=== PATIENT | male | born 1965 | race African-American/Black ===

== ENCOUNTER 2016-04-13 08:57 | Day surgery (SDC) | payer OTHER ==
[~2016-04-13 08:57] MED LIST: LIDOCAINE HCL 1%, 10 MG/ML (20ML VIAL) IJ ONE
[2016-04-13] MEDS ORDERED: POVIDONE-IODINE OINTMENT 10% - 28.4 GM TUBE ONE (09:13)
[2016-04-13] MEDS ORDERED: HEPARIN NA (PORCINE) 5,000 UNITS/ML 1ML VIAL ONE ×2 (09:13→10:29)
[2016-04-13] MEDS ORDERED: LIDOCAINE HCL 1%, 10 MG/ML (20ML VIAL) ONE (09:13)
[2016-04-13] MEDS ORDERED: PROPOFOL 20 ML ONE (10:29)
[2016-04-13] MEDS ORDERED: MIDAZOLAM HCL 2 MG/2 ML SINGLE DOSE VIAL ONE (10:29)
[2016-04-13] MEDS ORDERED: ceFAZolin SODIUM 1 GM VIAL IVPB ONE (11:15)
[2016-04-13] MEDS ORDERED: LIDOCAINE HCL 1%, 10 MG/ML (20ML VIAL) IJ ONE ×2 (11:17)
[2016-04-13] MEDS ORDERED: IOHEXOL 300 MG/ML INFUS..BTL IV ONE (11:38)
[2016-04-13] MEDS ORDERED: ONDANSETRON 4 MG/2 ML VIAL IVPUSH PRN (11:41)
[2016-04-13] MEDS ORDERED: oxyCODONE HCL 5 MG TABLET PO PRN (11:41)
--- NOTE | 2016-04-13 11:41 | OP ---
Operative Note - Note: Operative Date: 04/13/16 Pre-Operative Diagnosis: stenosis left avf Operation: venogram, venoplasty left avf Post-Operative Diagnosis: Same as Pre-op Surgeon: Felipe Shelley Anesthesia: Fractional Estimated Blood Loss (mls): 10 Operative Report Dictated: Yes
[2016-04-13] MEDS ORDERED: SODIUM CHLORIDE 1,000 ML IV SCH (11:45)
--- NOTE | 2016-04-13 11:46 | HP ---
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: Yes: CVA Cardiovascular: Yes: CAD, HTN, Hyperlipdemia, Other (chronic type B aortic dissection and 4-4.2 cm descending thoracic aortic aneurysm) Renal/: Yes: Renal Inusuff, Hemodialysis Heme/Onc: Yes: Anemia, B12 Deficiency, Thrombocytopenia - Past Surgical History Past Surgical History: Yes: None, AV Fistula/Graft - Smoking History Smoking history: Never smoked Have you smoked in the past 12 months: No Aproximately how many cigarettes per day: 0 - Alcohol/Substance Use Hx Alcohol Use: No History of Substance Use: reports: Cocaine - Social History ADL: Family Assistance History of Recent Travel: No Home Medications - Allergies Allergies/Adverse Reactions: Allergies Allergy/AdvReac Type Severity Reaction Status Date / Time No Known Drug Allergies Allergy Verified 04/13/16 09:56 - Home Medications Home Medications: Ambulatory Orders Losartan Potassium 50 mg PO DAILY 05/12/15 Aspirin [ASA -] 81 mg PO BID #30 tab.chew 11/23/15 Labetalol HCl [Normodyne -] 100 mg PO Q8H #90 tablet 11/23/15 Pravastatin Sodium 40 tab PO HS #60 tablet 11/23/15 Family Disease History - Family Disease History Family Disease History: Heart Disease: Mother (CABG in 50s) Physical Examination Vital Signs: Vital Signs Temperature 98.4 F 04/13/16 09:25 Pulse Rate 77 04/13/16 09:25 Respiratory Rate 20 04/13/16 09:25 Blood Pressure 105/62 04/13/16 09:25 O2 Sat by Pulse Oximetry (%) 97 04/13/16 09:28 Constitutional: Yes: Well Nourished Eyes: Yes: WNL HENT: Yes: WNL Neck: Yes: WNL Cardiovascular: Yes: WNL Respiratory: Yes: WNL Gastrointestinal: Yes: WNL Labs: CBC, BMP 04/13/16 09:06 Assessment/Plan Stenosis left avf 1. for venogram today
[2016-04-13 12:23] VITALS: TEMP 97.7
[2016-04-13 13:54] VITALS: BP 123/70; PULSE 70
--- NOTE | 2016-04-14 10:55 | OP ---
DATE OF OPERATION: 04/13/2016 PREOPERATIVE DIAGNOSIS: Stenosis left atrioventricular fistula. POSTOPERATIVE DIAGNOSIS: Stenosis left atrioventricular fistula. PROCEDURE: Venogram, venoplasty, left AV fistula. SURGEON: Felipe Horton DO ANESTHESIA: Fractional. ESTIMATED BLOOD LOSS: 10 mL. INDICATIONS: The patient is a 50-year-old male who has stenosis and left AV fistula, which was found on preoperative ultrasound for surveillance showing that he has an 80%-90% stenosis in the body of his left AV fistula. It was decided that he would need a venogram. The patient came in through ambulatory surgery and was consented for the procedure understanding all risks, benefits, and alternatives. He was then brought to the operating room. DESCRIPTION OF PROCEDURE: Once in the operating room, he was laid on the operating table in supine manner. The area of the left arm was prepped and draped in a sterile surgical manner. We then went ahead and injected 5 mL of lidocaine 1% at the proximal AV fistula. We took our micropuncture needle and punctured the left AV fistula. Micropuncture sheath was inserted. The 0.035 floppy guidewire was inserted, and a traditional short 6-Romansh sheath was inserted. We then went ahead and shot a venogram by a hand injection showing that the body of the fistula has a 80%-90% stenosis. At this point, a 0.035 floppy guidewire was used, and we were able to cross our lesion. We then went ahead and used an 8 x 6 and then a 9 x 6 venoplasty [place] balloon and we were able to perform venoplasty of the area. Complete venogram showed that the fistula was now completely patent. There was no recoil, and there was a good thrill. At this point, we went ahead and used a 4-0 Biosyn stitch, and a [id number] stitch was placed around our sheath, and the sheath was pulled. The area was wet and dried. Dermabond was placed. The patient tolerated the procedure well with no complication. The patient was transferred back in stable condition. FELIPE HORTON DO GRAPPLE SKIDDER OPERATOR/[id number]
== END 2016-04-13 14:00 | disposition home or self-care (01) ==
LOC: JASU-SURG 08:57
PROVIDERS: ATTEND Surgery Vascular Surgery
PROC: B50WYZZ Plain Radiography of Dialysis Shunt/Fistula using Other Contrast (ICD-10-PCS; principal; 2016-04-13 10:30)
DX: I77.0 Arteriovenous fistula, acquired (principal); T82.858A Stenosis of other vascular prosthetic devices, implants and grafts, initial encounter; Y93.9 Activity, unspecified; Y92.9 Unspecified place or not applicable
CPT/HCPCS: 36415; 76000-TC; 84132; 94760; J1644

== ENCOUNTER 2016-09-20 13:00 | Observation (INO) | payer OTHER ==
--- NOTE | 2016-09-20 13:26 | PDOC ---
History of Present Illness - General Chief Complaint: Pain Stated Complaint: ABDOMINAL PAIN Time Seen by Provider: 09/20/16 13:23 History Source: Patient, Parent(s) - History of Present Illness Initial Comments: 09/20/16 16:15 50yo with ESRD on HD 3x a week (missed today), HTN, CAD, cardiomyopathy, HLD and chronic Type B aortic dissection present for pain on palpation 8/10 on left flank midaxillary line since this morning. Loss of appetite. No nausea, vomiting, constipation, diarrhea fever. 09/20/16 18:02 Past History - Past Medical History Allergies/Adverse Reactions: Allergies Allergy/AdvReac Type Severity Reaction Status Date / Time No Known Drug Allergies Allergy Verified 09/20/16 13:04 Home Medications: Ambulatory Orders Losartan Potassium 50 mg PO DAILY 05/12/15 Aspirin [ASA -] 81 mg PO BID #30 tab.chew 11/23/15 Labetalol HCl [Normodyne -] 100 mg PO Q8H #90 tablet 11/23/15 Pravastatin Sodium 40 tab PO HS #60 tablet 11/23/15 Amlodipine Besylate 5 mg PO DAILY 07/22/16 Anemia: No Asthma: No Cancer: No Cardiac Disorders: No CVA: Yes (MULTIPLE RESIDUAL R SIDED WEAKNESS AND EXPRESSIVE APHASIA) COPD: No CHF: No Dementia: No Diabetes: No Dialysis: Yes () GI Disorders: No Disorders: No HTN: Yes Hypercholesterolemia: Yes Liver Disease: No Seizures: No Thyroid Disease: No - Surgical History Abdominal Surgery: No Appendectomy: No Cardiac Surgery: No Cholecystectomy: No Lung Surgery: No Neurologic Surgery: No Orthopedic Surgery: No - Family Disease History Family Disease History: Heart Disease: Mother - Immunization History Immunization Up to Date: Yes - Psycho/Social/Smoking Cessation Hx Anxiety: No Suicidal Ideation: No Smoking Status: No Smoking History: Never smoked Have you smoked in the past 12 months: No Number of Cigarettes Smoked Daily: 0 Hx Alcohol Use: No Drug/Substance Use Hx: No Substance Use Type: None Hx Substance Use Treatment: No Review of Systems - Review of Systems Constitutional: No: Symptoms Reported HEENTM: No: Symptoms Reported Respiratory: No: Symptoms reported Cardiac (ROS): No: Symptoms Reported ABD/GI: Yes: See HPI : No: Symptoms Reported Musculoskeletal: No: Symptoms Reported Integumentary: No: Symptoms Reported Neurological: No: Symptoms reported *Physical Exam - Physical Exam General Appearance: Yes: Nourished, Disheveled HEENT: positive: EOMI Neck: negative: Tender Respiratory/Chest: positive: Chest Tender (on palpation of left midaxillary line ), Normal Breath Sounds Cardiovascular: positive: Regular Rhythm, Regular Rate ED Treatment Course - LABORATORY CBC & Chemistry Diagram: 09/20/16 15:12 09/20/16 15:12 Medical Decision Making - Medical Decision Making 09/20/16 18:04 50yo with ESRD on HD 3x a week (missed today), HTN, CAD, cardiomyopathy, HLD and chronic Type B aortic dissection present for pain on palpation 8/10 on left flank midaxillary line since this morning EKG, CXR unchanged from previous. MIssed HD today. Talked to Dr. Brown who accepted to hemodialyze patient tomorrow. Patient to be admitted in obs until then. 09/20/16 18:08 *DC/Admit/Observation/Transfer Diagnosis at time of Disposition: ESRD (end stage renal disease) on dialysis, Thoracic aortic dissection - Discharge Dispostion Admit: Yes - Referrals Referrals: Prudencio Severino MD [Primary Care Provider] - Kevin Brown MD [Staff Physician] - Dion Delatorre MD [Staff Physician] -
--- NOTE | 2016-09-20 13:29 | PDOC ---
Attending Attestation - Resident Resident Name: Zachary Rodriguez - ED Attending Attestation I have performed the following: I have examined & evaluated the patient, The case was reviewed & discussed with the resident, I agree w/resident's findings & plan, Exceptions are as noted - HPI HPI: 50 yo M history ESRD on HD (missed his session today), HTN, CAD, cardiomyopathy , HL, aortic aneurysm presents with L chest pain, localizes to the lower ribs on the L side of chest. Not associated with SOB, N/V, diaphoresis. Still having pain at present. Denies trauma. He missed his dialysis today due to the pain. - Physicial Exam PE: GENERAL: Awake, alert, and fully oriented, in no acute distress HEAD: No signs of trauma EYES: PERRLA, EOMI, sclera anicteric, conjunctiva clear ENT: Auricles normal inspection, hearing grossly normal, nares patent, oropharynx clear without exudates. Moist mucosa NECK: Normal ROM, supple, no lymphadenopathy, JVD, or masses LUNGS: Breath sounds equal, clear to auscultation bilaterally. No wheezes, and no crackles HEART: Regular rate and rhythm, normal S1 and S2, no murmurs, rubs or gallops ABDOMEN: Soft, nontender, normoactive bowel sounds. No guarding, no rebound. No masses EXTREMITIES: Normal range of motion, no edema. No clubbing or cyanosis. No cords, erythema, or tenderness NEUROLOGICAL: Cranial nerves II through XII grossly intact. Normal speech, normal gait SKIN: Warm, Dry, normal turgor, no rashes or lesions noted. - Medical Decision Making Pt with L chest pain (he indicates the lower rib margin on the L side along the mid-axillary line), would be exceedingly atypical for complication of the aneurysm. However, he is high risk for ACS. Will admit for serial enzymes. Will contact Dr. Brown for dialysis.
[2016-09-20 13:38] VITALS: BMI 26.6
[2016-09-20 15:28] LABS: BASOPHIL 0.4 % (0-2.0); EOSINOPHIL 1.3 % (0-4.5); MCHC 33.5 g/dl (32.0-35.9); MEAN CELL VOLUME 98.4 fl (80-96); MEAN PLT VOLUME 9.1 fl (7.5-11.1); NEUTROPHILS 82.3 % (42.8-82.8); PLATELET COUNT 118 K/MM3 (134-434); WHITE BLOOD COUNT 4.8 K/mm3 (4.0-10.0)
[2016-09-20 15:55] LABS: ALBUMIN 4.4 g/dl (3.4-5.0); ANION GAP 9 (8-16); CALCIUM 9.3 mg/dL (8.5-10.1); CO2 28 mmol/L (21-32); GLUCOSE,RANDOM 103 mg/dL (74-106); SGOT/AST 17 U/L (15-37); SGPT/ALT 17 U/L (12-78)
[2016-09-20 16:01] LABS: ALK PHOS 96 U/L (45-117); BILIRUBIN,TOTAL 1.3 mg/dL (0.2-1.0); CPK 309 IU/L (39-308); TOT PROT 8.1 g/dl (6.4-8.2); TROPONIN I < 0.02 ng/ml (0.00-0.05)
--- NOTE | 2016-09-20 18:55 | PN ---
Teaching Attending Note Name of Resident: Olegario Fox ATTENDING PHYSICIAN STATEMENT I saw and evaluated the patient. I reviewed the resident's note and discussed the case with the resident. I agree with the resident's findings and plan as documented. SUBJECTIVE: OBJECTIVE: Vital Signs Period Temp Pulse Resp BP Sys/[place] Pulse Ox Last 24 Hr 98.4 F 67 18 173/100 100 ASSESSMENT AND PLAN:
[2016-09-20] MEDS ORDERED: morphine CARPU-JECT 4 MG/1 ML DISP.SYRIN IVPUSH PRN (19:10)
--- NOTE | 2016-09-20 19:29 | HP ---
Admitting History and Physical - Admission Chief Complaint: chest pain History of Present Illness: 50 yo M with significant PMhx of HTN, HLD, Type B aortic dissection and CVA ( residual right sided weakness) an ESRD (HD , , Sat.) presents with one day history of chest pain. He describes intermittent non-radiating 8/10 left mid axillary chest pain. Pain is worse on deep inspiration and not reproducible with palpation. Pain is not related to movement or activity. No alleviating factors. He missed his HD dialysis today secondary to this pain. He sees Dr. Loza as outpatient for cardio and Dr. Brown for HD. No recent illness, fever, sob,cough, abd. pain, N/V. 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 Cardiovascular: Yes: CAD, HTN, Hyperlipdemia, Other (chronic type B aortic dissection and 4-4.2 cm descending thoracic aortic aneurysm) Renal/: Yes: Renal Inusuff, Hemodialysis Heme/Onc: Yes: Anemia, B12 Deficiency, Thrombocytopenia - Past Surgical History Past Surgical History: Yes: None, AV Fistula/Graft - Smoking History Smoking history: Never smoked Have you smoked in the past 12 months: No Aproximately how many cigarettes per day: 0 - Alcohol/Substance Use Hx Alcohol Use: No History of Substance Use: reports: Cocaine - Social History ADL: Family Assistance History of Recent Travel: No Home Medications - Allergies Allergies/Adverse Reactions: Allergies Allergy/AdvReac Type Severity Reaction Status Date / Time No Known Drug Allergies Allergy Verified 09/20/16 13:04 - Home Medications Home Medications: Ambulatory Orders Losartan Potassium 50 mg PO DAILY 05/12/15 Aspirin [ASA -] 81 mg PO BID #30 tab.chew 11/23/15 Labetalol HCl [Normodyne -] 100 mg PO Q8H #90 tablet 11/23/15 Pravastatin Sodium 40 tab PO HS #60 tablet 11/23/15 Amlodipine Besylate 5 mg PO DAILY 07/22/16 Family Disease History - Family Disease History Family Disease History: Diabetes: Mother (CABG in 50s), Heart Disease: Mother Review of Systems - Review of Systems Constitutional: reports: Loss of Appetite Neck: reports: No Symptoms Cardiovascular: reports: Chest Pain (left mid axillary) Respiratory: reports: Cough Gastrointestinal: denies: Abdominal Pain, Diarrhea Genitourinary: reports: No Symptoms Integumentary: reports: No Symptoms Endocrine: reports: No Symptoms Pain Intensity: 8 Physical Examination Vital Signs: Vital Signs Temperature 98.4 F 09/20/16 13:13 Pulse Rate 67 09/20/16 13:13 Respiratory Rate 18 09/20/16 13:13 Blood Pressure 173/100 09/20/16 13:13 O2 Sat by Pulse Oximetry (%) 100 09/20/16 13:13 Constitutional: Yes: No Distress, Calm Eyes: Yes: Conjunctiva Clear, EOM Intact, PERRL. No: Sclera Icterus HENT: Yes: Atraumatic, Normocephalic Neck: Yes: Supple, Trachea Midline. No: Lymphadenopathy Cardiovascular: Yes: WNL, Regular Rate and Rhythm. No: JVD, Gallop, Murmur, Rub Respiratory: Yes: Regular, CTA Bilaterally. No: Accessory Muscle Use Gastrointestinal: Yes: Normal Bowel Sounds, Soft. No: Distention, Tenderness Musculoskeletal: Yes: Other Extremities: Yes: Other (contracture of right hand, Left arm fistula for dialysis). No: Calf Tenderness, Cyanosis, Deformity Edema: No Peripheral Pulses WNL: Yes Peripheral Pulses: Left Radial: 2+, Right Radial: 2+, Left Doralis Pedis: 2+, Right Dorsalis Pedis: 2+ Neurological: Yes: Alert, Oriented, Cran Nerves II-XII Intact, Dysarthria, Pre- Existing Deficit (residual right sided weakness upper and lower ext.), Weakness (right sided) ...Motor Strength: LUE (5/5), LLE (5/5), RUE (3/5), RLE (3/5) Psychiatric: Yes: Alert, Oriented Labs: CBC, BMP 09/20/16 15:12 09/20/16 15:12 Problem List - Problems (1) Chest pain Assessment/Plan: * R/O ACS place on observation in TELE * Trend trops Q6H * Morphine 2mg IV Q4PRN pain * Cardiology Consult * TTE pending. * Continue home BP meds. (2) ESRD (end stage renal disease) on dialysis Assessment/Plan: * Plan for HD tomorrow with Dr. Brown * has appointment at 3pm Visit type - Emergency Visit Emergency Visit: Yes Care time: The patient presented to the Emergency Department on the above date and was hospitalized for further evaluation of their emergent condition. - New Patient This patient is new to me today: Yes Date on this admission: 09/20/16 - Critical Care Critical Care patient: No
--- NOTE | 2016-09-20 19:45 | HP ---
CHIEF COMPLAINT: Chest Pain PCP: n/a HISTORY OF PRESENT ILLNESS: 50 year old M with pmh of HTN, HLD, CVA with residual deficits, Type B aortic dissection, and ESRD on HD (TTS) presents to the ED with 1 day history of chest pain that is intermittent, non-radiating, 8/10 in the left mid axillary line. Pain is worse on inspiration and does not change with position or movement. Pain is not reproducible by palpation. Denies fever, sob, cough, abd pain, palpitations, n/v/d/c. Patient missed HD today due to his pain. He follows with Dr. Gonzalez and Dr. Loza. Recent Travel: denies PAST MEDICAL HISTORY: As stated above PAST SURGICAL HISTORY: Av fistula Social History: Smoking: Denies Alcohol:Denies Drugs: Denies Family History: Diabetes and HTN in mother. Allergies No Known Drug Allergies Allergy (Verified 09/20/16 13:04) HOME MEDICATIONS: Home Medications Medication Instructions Recorded Losartan Potassium 50 mg PO DAILY 05/12/15 Aspirin [ASA -] 81 mg PO BID #30 tab.chew 11/23/15 Labetalol HCl [Normodyne -] 100 mg PO Q8H #90 tablet 11/23/15 Pravastatin Sodium 40 tab PO HS #60 tablet 11/23/15 Amlodipine Besylate 5 mg PO DAILY 07/22/16 REVIEW OF SYSTEMS CONSTITUTIONAL: Absent: fever, chills, diaphoresis, generalized weakness, malaise, loss of appetite, weight change HEENT: Absent: rhinorrhea, nasal congestion, throat pain, throat swelling, difficulty swallowing, mouth swelling, ear pain, eye pain, visual changes CARDIOVASCULAR: Absent: chest pain, syncope, palpitations, irregular heart rate, lightheadedness , peripheral edema RESPIRATORY: Absent: cough, shortness of breath, dyspnea with exertion, orthopnea, wheezing, stridor, hemoptysis GASTROINTESTINAL: Absent: abdominal pain, abdominal distension, nausea, vomiting, diarrhea, constipation, melena, hematochezia GENITOURINARY: Absent: dysuria, frequency, urgency, hesitancy, hematuria, flank pain, genital pain MUSCULOSKELETAL: Absent: myalgia, arthralgia, joint swelling, back pain, neck pain SKIN: Absent: rash, itching, pallor HEMATOLOGIC/IMMUNOLOGIC: Absent: easy bleeding, easy bruising, lymphadenopathy, frequent infections ENDOCRINE: Absent: unexplained weight gain, unexplained weight loss, heat intolerance, cold intolerance NEUROLOGIC: Absent: headache, focal weakness or paresthesias, dizziness, unsteady gait, seizure, mental status changes, bladder or bowel incontinence PSYCHIATRIC: Absent: anxiety, depression, suicidal or homicidal ideation, hallucinations. PHYSICAL EXAMINATION Vital Signs - 24 hr 09/20/16 13:13 Temperature 98.4 F Pulse Rate 67 Respiratory 18 Rate Blood Pressure 173/100 O2 Sat by Pulse 100 Oximetry (%) GENERAL: Awake, alert, and fully oriented, in no acute distress. HEAD: Normal with no signs of trauma. EYES: Pupils equal, round and reactive to light, extraocular movements intact, sclera anicteric, conjunctiva clear. No lid lag. EARS, NOSE, THROAT: Ears normal, nares patent, oropharynx clear without exudates. Moist mucous membranes. NECK: Normal range of motion, supple without lymphadenopathy, JVD, or masses. LUNGS: Breath sounds equal, clear to auscultation bilaterally. No wheezes, and no crackles. No accessory muscle use. HEART: Regular rate and rhythm, normal S1 and S2 with 3/6 diastolic murmur on DESIRE border. No rubs or gallops. ABDOMEN: Soft, nontender, not distended, normoactive bowel sounds, no guarding, no rebound, no masses. No hepatomegaly or splenomegaly. MUSCULOSKELETAL: Normal range of motion at all joints. No bony deformities or tenderness. No CVA tenderness. UPPER EXTREMITIES: 2+ pulses, warm, well-perfused. No cyanosis. No clubbing. No peripheral edema. LOWER EXTREMITIES: 2+ pulses, warm, well-perfused. No calf tenderness. No peripheral edema. NEUROLOGICAL: Cranial nerves II-XII intact. Normal speech. Gait not observed. 3 /5 strength in RUE and RLE. Contracture of right hand. PSYCHIATRIC: Cooperative. Good eye contact. Appropriate mood and affect. SKIN: Warm, dry, normal turgor, no rashes or lesions noted, normal capillary refill. Laboratory Results - last 24 hr 09/20/16 09/20/16 15:12 15:12 WBC 4.8 D RBC 3.58 L Hgb 11.8 D Hct 35.2 L D MCV 98.4 H MCH 33.0 MCHC 33.5 RDW 16.0 H Plt Count 118 L MPV 9.1 D Neutrophils % 82.3 D Lymphocytes % 11.4 D Monocytes % 4.6 Eosinophils % 1.3 Basophils % 0.4 Sodium 141 Potassium 4.5 D Chloride 104 Carbon Dioxide 28 Anion Gap 9 BUN 38 H D Creatinine 9.0 H* D Creat Clearance w eGFR 6.22 Random Glucose 103 D Calcium 9.3 Total Bilirubin 1.3 H AST 17 D ALT 17 D Alkaline Phosphatase 96 Creatine Kinase 309 H Creatine Kinase Index 0.8 CK-MB (CK-2) 2.646 Troponin I < 0.02 Total Protein 8.1 D Albumin 4.4 D ASSESSMENT/PLAN: 50 year old M with pmh of HTN, HLD, CVA with residual deficits, Type B aortic dissection, and ESRD on HD (TTS) presents to the ED with 1 day history of chest pain admitted for r/o acs. Problem List - Problem (1) Chest pain Assessment/Plan: Placed into observation TELE R/o ACS Trend trops, first one negative Morphine 2 mg IV Q4 PRN Cardiology Consulted, Dr. Loza Echo Pending (2) ESRD (end stage renal disease) on dialysis Assessment/Plan: HD tomorrow Consult Nephro, Dr. Gonzalez (3) Hypertension Assessment/Plan: Continue home bp medications (norvasc and labetalol) Qualifiers: Hypertension type: renovascular hypertension Qualified Code(s): I15.0 - Renovascular hypertension (4) CVA Assessment/Plan: Has residual deficits Continue asa 81 mg po (5) HLD (hyperlipidemia) Assessment/Plan: Continue lipitor 10 mg po hs (6) DVT prophylaxis Assessment/Plan: Heparin 5000 units sq bid Visit type - Emergency Visit Emergency Visit: Yes Care time: The patient presented to the Emergency Department on the above date and was hospitalized for further evaluation of their emergent condition. - New Patient This patient is new to me today: Yes Date on this admission: 09/20/16 - Critical Care Critical Care patient: No
[2016-09-20] MEDS ORDERED: LABETALOL HCL 100 MG TABLET (FP) ONE (20:05)
[2016-09-20] MEDS: LABETALOL HCL 100 MG TABLET (FP) PO SCH (20:10)
--- NOTE | 2016-09-20 21:35 | PDOC ---
*Physical Exam - Vital Signs Last Vital Signs Temp Pulse Resp BP Pulse Ox 98.4 F 67 18 173/100 100 09/20/16 13:13 09/20/16 13:13 09/20/16 13:13 09/20/16 13:13 09/20/16 13:13 ED Treatment Course - LABORATORY CBC & Chemistry Diagram: 09/20/16 15:12 09/20/16 15:12 - ADDITIONAL ORDERS Additional order review: Laboratory Results 09/20/16 15:12 Sodium 141 Potassium 4.5 D Chloride 104 Carbon Dioxide 28 Anion Gap 9 BUN 38 H D Creatinine 9.0 H* D Creat Clearance w eGFR 6.22 Random Glucose 103 D Calcium 9.3 Total Bilirubin 1.3 H AST 17 D ALT 17 D Alkaline Phosphatase 96 Creatine Kinase 309 H Creatine Kinase Index 0.8 CK-MB (CK-2) 2.646 Troponin I < 0.02 Total Protein 8.1 D Albumin 4.4 D 09/20/16 15:12 RBC 3.58 L MCV 98.4 H MCHC 33.5 RDW 16.0 H MPV 9.1 D Neutrophils % 82.3 D Lymphocytes % 11.4 D Monocytes % 4.6 Eosinophils % 1.3 Basophils % 0.4 *DC/Admit/Observation/Transfer Diagnosis at time of Disposition: ESRD (end stage renal disease) on dialysis Chest pain Qualifiers: Chest pain type: intercostal pain Qualified Code(s): R07.82 - Intercostal pain - Discharge Dispostion Admit: Yes - Referrals Referrals: Prudencio Severino MD [Primary Care Provider] - Kevin Brown MD [Staff Physician] - Dion Delatorre MD [Staff Physician] - - Patient Instructions - Post Discharge Activity
[2016-09-20] MEDS ORDERED: ASPIRIN 81 MG CHEWABLE TABLETS PO SCH (22:00)
[2016-09-20] MEDS ORDERED: ATORVASTATIN CA 10 MG TABLET (FP) PO SCH (22:00)
[2016-09-20] MEDS ORDERED: HEPARIN NA (PORCINE) 5,000 UNITS/ML 1ML VIAL SQ SCH (22:00)
[2016-09-20] MEDS ORDERED: HEPARIN NA (PORCINE) 5,000 UNITS/ML 1ML VIAL ONE (23:26)
[2016-09-21] MEDS ORDERED: morphine CARPU-JECT 4 MG/1 ML DISP.SYRIN ONE (00:25)
[2016-09-21] MEDS ORDERED: LABETALOL HCL 5 MG/1 ML (100MG/20 ML VIAL) IVPUSH ONE (01:18)
[2016-09-21] MEDS: LABETALOL HCL 100 MG TABLET (FP) PO SCH ×2 (06:28→13:30)
[2016-09-21 07:44] LABS: BASOPHIL 0.3 % (0-2.0); EOSINOPHIL 1.3 % (0-4.5); MCH 33.3 pg (25.7-33.7); MCHC 34.2 g/dl (32.0-35.9); MEAN CELL VOLUME 97.4 fl (80-96); MEAN PLT VOLUME 8.3 fl (7.5-11.1); NEUTROPHILS 73.6 % (42.8-82.8); PLATELET COUNT 93 K/MM3 (134-434); RDW 15.9 % (11.9-15.9); WHITE BLOOD COUNT 4.8 K/mm3 (4.0-10.0)
[2016-09-21 08:15] LABS: ALBUMIN 3.3 g/dl (3.4-5.0); ANION GAP 11 (8-16); CALCIUM 8.6 mg/dL (8.5-10.1); CO2 25 mmol/L (21-32); GLUCOSE,RANDOM 96 mg/dL (74-106); SGOT/AST 13 U/L (15-37); SGPT/ALT 13 U/L (12-78)
[2016-09-21 08:25] LABS: ALK PHOS 80 U/L (45-117); BILIRUBIN,TOTAL 1.3 mg/dL (0.2-1.0); TOT PROT 6.1 g/dl (6.4-8.2)
[2016-09-21 09:00] LABS: CREATININE 9.8 mg/dL (0.7-1.3)
[2016-09-21] MEDS ORDERED: amLODIPine BESYLATE 5 MG TABLET (FP) PO SCH (10:00)
[2016-09-21] MEDS ORDERED: ASPIRIN 81 MG CHEWABLE TABLETS PO SCH (10:00)
--- NOTE | 2016-09-21 11:53 | CON.NEP ---
Consult Consult Specialty:: Nephrology (Bj/Kevin) Referred by:: Dr. Altamirano Reason for Consultation:: ESRD on Hd - History of Present Illness Chief Complaint: Chest pain History of Present Illness: This is a 50 year old gentleman with PMhx of ESRD on HD (TTS), Hypertension, CVA , Cardiomyopathy who presented with left sided chest pain x 1 day. Pt reports that chest pain resolved earlier today. No SOB, N/V or diaphoresis. Pt last had dialysis on Monday w/o complication. K was 4.5 and pt without evidence of sob/ fluid overload. 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: CVA Cardio/Vascular: Yes: CAD, HTN, Hyperlipdemia, Other (chronic type B aortic dissection and 4-4.2 cm descending thoracic aortic aneurysm) Renal/: Yes: Renal Inusuff, Hemodialysis - Past Surgical History Past Surgical History: Yes: None, AV Fistula/Graft - Alcohol/Substance Use Hx Alcohol Use: No History of Substance Use: reports: Cocaine - Smoking History Smoking history: Never smoked Have you smoked in the past 12 months: No Aproximately how many cigarettes per day: 0 - Social History Usual Living Arrangement: With Parent ADL: Family Assistance History of Recent Travel: No Home Medications - Allergies Allergies/Adverse Reactions: Allergies Allergy/AdvReac Type Severity Reaction Status Date / Time No Known Drug Allergies Allergy Verified 09/20/16 13:04 - Home Medications Home Medications: Ambulatory Orders Losartan Potassium 50 mg PO DAILY 05/12/15 Aspirin [ASA -] 81 mg PO BID #30 tab.chew 11/23/15 Labetalol HCl [Normodyne -] 100 mg PO Q8H #90 tablet 11/23/15 Pravastatin Sodium 40 tab PO HS #60 tablet 11/23/15 Amlodipine Besylate 5 mg PO DAILY 07/22/16 Family Disease History - Family Disease History Family Disease History: Diabetes: Mother (CABG in 50s), Heart Disease: Mother Review of Systems - Review of Systems Constitutional: reports: No Symptoms Eyes: reports: No Symptoms HENT: reports: No Symptoms Neck: reports: No Symptoms Cardiovascular: reports: Chest Pain. denies: Edema, Palpitations, Shortness of Breath Respiratory: reports: No Symptoms Gastrointestinal: reports: No Symptoms Genitourinary: reports: No Symptoms Neurological: reports: No Symptoms Nephrology Consult - Height Height: 5 ft 8 in - Weight Weight: 175 lb - BMI Body Mass Index (BMI): 26.6 - Lab Results CBC,BMP: CBC, BMP 09/21/16 05:35 09/21/16 05:35 Anion Gap: Anion Gap Anion Gap 11 (8-16) 09/21/16 05:35 - Imaging Chest X-ray: Report Reviewed - Physical Examination Vital Signs: Vital Signs Temperature 98.4 F 09/21/16 09:00 Pulse Rate 64 09/21/16 09:00 Respiratory Rate 20 09/21/16 09:00 Blood Pressure 170/100 09/21/16 09:00 O2 Sat by Pulse Oximetry (%) 97 09/21/16 06:00 Constitutional: Yes: Well Nourished, No Distress, Calm Eyes: Yes: Conjunctiva Clear HENT: Yes: Atraumatic, Normocephalic Neck: Yes: Supple, Trachea Midline Cardiovascular: Yes: Regular Rate and Rhythm, S1, S2. No: JVD, Murmur, Rub Respiratory: Yes: Regular, CTA Bilaterally Gastrointestinal: Yes: Normal Bowel Sounds, Soft. No: Tenderness Access for Hemodialysis: AV Fistula Extremities: No: Cold, Cool, Cyanosis Edema: No Problem List - Problems (1) Chest pain Code(s): R07.9 - CHEST PAIN, UNSPECIFIED Qualifiers: Chest pain type: unspecified Qualified Code(s): R07.9 - Chest pain, unspecified (2) CVA, old, cognitive deficits Code(s): I69.31 - COGNITIVE DEFICITS FOLLOWING CEREBRAL INFARCT * DO NOT USE * (3) ESRD (end stage renal disease) on dialysis Code(s): N18.6 - END STAGE RENAL DISEASE Z99.2 - DEPENDENCE ON RENAL DIALYSIS (4) Hypertension Code(s): I10 - ESSENTIAL (PRIMARY) HYPERTENSION Qualifiers: Hypertension type: renovascular hypertension Qualified Code(s): I15.0 - Renovascular hypertension Assessment/Plan 50 year old gentleman with PMhx of ESRD on HD (TTS), Hypertension, CVA, Cardiomyopathy who presented with left sided chest pain x 1 day. Pt reports that chest pain resolved earlier today. #ESRD on Hd pt to get dialysis today, missed treatment yesterday will use 2k bath with goal UF of 2-3L as tolerated Dose all meds for intermittent dialysis will plan to resume regular TTS schedule tomorrow #Chest pain r/o ACS Cardiac enzyme negative x 1 Cardiology follow up Tele monitoring #Hypertension Continue Labetalol, Coreg, Amlodpine Goal BP < 140/90 Thank you Kevin Brown DO
--- NOTE | 2016-09-21 13:33 | CON.CARD ---
Consult Consult Specialty:: Cardiology Referred by:: Hospitalist Reason for Consultation:: chest pain - History of Present Illness Chief Complaint: L axilla pain History of Present Illness: 50-year-old man with the history of end-stage renal disease on hemodialysis, history of severe difficult to control hypertension, recurrent CVAs, chronic type B aortic dissection which has been medically managed, admitted with L axilla reproducible pain. Pt seen and examined today in nad. states he is feeling better. no further pain since admission. denies sob, palpitations, pnd, orthopnea, LE edema. 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 Cardio/Vascular: Yes: CAD, HTN, Hyperlipdemia, Other (chronic type B aortic dissection and 4-4.2 cm descending thoracic aortic aneurysm) Renal/: Yes: Renal Inusuff, Hemodialysis - Past Surgical History Past Surgical History: Yes: None, AV Fistula/Graft - Alcohol/Substance Use Hx Alcohol Use: No History of Substance Use: reports: Cocaine - Smoking History Smoking history: Never smoked Have you smoked in the past 12 months: No Aproximately how many cigarettes per day: 0 - Social History Usual Living Arrangement: With Parent ADL: Family Assistance History of Recent Travel: No Home Medications - Allergies Allergies/Adverse Reactions: Allergies Allergy/AdvReac Type Severity Reaction Status Date / Time No Known Drug Allergies Allergy Verified 09/20/16 13:04 - Home Medications Home Medications: Ambulatory Orders Losartan Potassium 50 mg PO DAILY 05/12/15 Aspirin [ASA -] 81 mg PO BID #30 tab.chew 11/23/15 Labetalol HCl [Normodyne -] 100 mg PO Q8H #90 tablet 11/23/15 Pravastatin Sodium 40 tab PO HS #60 tablet 11/23/15 Amlodipine Besylate 5 mg PO DAILY 07/22/16 Family Disease History - Family Disease History Family Disease History: Diabetes: Mother (CABG in 50s), Heart Disease: Mother Review of Systems - Review of Systems Constitutional: denies: No Symptoms, Chills, Diaphoresis, Fever, Lethargy, Loss of Appetite, Malaise, Night Sweats, Unintentional Wgt. Loss, Weakness, Other Eyes: denies: No Symptoms, Blind Spots, Blurred Vision, Double Vision, Eye Pain , Floaters, Photophobia, Recent Change in Vision, Other HENT: denies: No Symptoms, Difficult Swallowing, Ear Discharge, Ear Pain, Epistaxis, Gingival Bleeding, Hearing Loss, Mouth Swelling, Nasal Congestion, Ocular Prosthesis, Throat Pain, Toothache, Ringing in Ears, Other Neck: denies: No Symptoms, Decreased ROM, Lumps, Pain on Movement, Stiffness, Swollen Glands, Tenderness, Other Cardiovascular: reports: Chest Pain Respiratory: denies: No Symptoms, Cough, Exercise Intolerance, Hemoptysis, Orthopnea, PND, Snoring, SOB, SOB on Exertion, Wheezing, Other Gastrointestinal: denies: No Symptoms, Abdominal Pain, Bloating, Constipation, Diarrhea, Dysphagia, Indigestion, Melena, Nausea, Rectal Bleeding, Vomiting, Vomiting Blood, Other Genitourinary: denies: No Symptoms, Burning, Discharge, Dysuria, Flank Pain, Frequency, Hematuria, Incontinence, Lesions, Menses, Pain, Testicular Mass, Testicular Pain, Testicular Swelling, Urgency, Vaginal Bleeding, Other Breasts: denies: No Symptoms Reported, See HPI, Breast Implants, Discharge from Nipple, Lumps, Pain, Skin Changes, Other Musculoskeletal: denies: No Symptoms, Back Pain, Crepitus, Decreased ROM, Extremity Pain, Joint Pain, Joint Swelling, Muscle Pain, Muscle Cramps, Muscle Weakness, Other Integumentary: denies: No Symptoms, Blister, Bruising, Change in Color, Eczema, Erythema, Incision, Lesions, Lump, Pallor, Pruritis, Rash, Wound, Other Neurological: denies: No Symptoms, Change in LOC, Change in Speech, Confusion, Dizziness, Headache, Incoordination, Numbness, Parasthesia, Pre-Existing Deficit , Seizure, Syncope, Tremors, Unsteady Gait, Weakness, Other Endocrine: denies: No Symptoms, Excessive Sweating, Flushing, Increased Hunger, Increased Thirst, Intolerance to Cold, Intolerance to Heat, Unexplained Weight Gain, Unexplained Weight Loss, Other Hematology/Lymphatic: denies: No Symptoms, Easily Bruised, Excessive Bleeding, Swollen Glands, Other Psychiatric: denies: No Symptoms, Altered Sleep Pattern, Anxiety, Depression, Hallucinations, Panic, Paranoia, Suicidal, Other Vital Signs: Vital Signs Temperature 98.4 F 09/21/16 09:00 Pulse Rate 64 09/21/16 09:00 Respiratory Rate 20 09/21/16 09:00 Blood Pressure 170/100 09/21/16 09:00 O2 Sat by Pulse Oximetry (%) 97 09/21/16 06:00 Constitutional: Yes: Well Nourished, No Distress, Calm Eyes: Yes: WNL, Conjunctiva Clear, EOM Intact, PERRL HENT: Yes: WNL, Atraumatic, Normocephalic Neck: Yes: WNL, Supple, Trachea Midline Respiratory: Yes: WNL, Regular, CTA Bilaterally. No: Rales, Rhonchi, Wheezes Gastrointestinal: Yes: WNL, Normal Bowel Sounds, Soft. No: Distention, Tenderness Renal/: Yes: WNL Cardiovascular: Yes: Regular Rate and Rhythm. No: Bradycardia, Tachycardia, Pulse Irregular, Gallop, Rub, Varicosities JVD: No Carotid Bruit: No PMI: Non-Displaced Heart Sounds: Yes: S1, S2. No: Split S2, S3, S4, Clicks, Gallop, Rub, Bruit Murmur: Yes: Systolic Murmur. No: Diastolic Murmur Musculoskeletal: Yes: WNL Extremities: Yes: WNL Edema: No Peripheral Pulses WNL: Yes Peripheral Pulses: 2+ Left Doralis Pedis, 2+ Right Dorsalis Pedis Integumentary: Yes: WNL Neurological: Yes: Alert, Oriented Psychiatric: Yes: Alert, Oriented - Other Data Labs, Other Data: CBC, BMP 09/21/16 05:35 09/21/16 05:35 Troponin, BNP 09/21/16 00:20 Troponin I 0.02 Troponin, BNP 09/21/16 00:20 Troponin I 0.02 reviewed, no ischemia Echo: Report Reviewed Imaging - Results Chest X-ray: Report Reviewed, Image Reviewed EKG: Report Reviewed, Image Reviewed Other: Report Reviewed, Image Reviewed (tele-nsr, sinus bradycardia, no sig arrhythmia) Assessment/Plan IMP: Chest pain-atypical, reproducible, resolved Moderate chronic HTN ESRD on HD now with light headedness on HD Chronic type B aortic dissection with stable thoracic aortic aneurysm History of CVAs CAD REC: Chest pain-atypical, reproducible, resolved -cardiac enzymes wnl x2 -no ischemia on ekg or arrhythmia on tele -pt acceptable for discharge home from a cardiac standpoint with plan for very close outpatient follow up and further work up as needed, will consider nuclear stress test vs cardiac cath as outpatient HTN: variable -cont labetalol and norvasc -close outpatient follow up ESRD on HD: -HD as per renal -tolerating well Chronic type B dissection: -cont Labetalol at current dose -CT done in recent past, no change in chronic dissection History CVAS: -completed course of AC with coumadin -now on ASA monotherapy and Lipitor CAD: -positive nuclear stress test prior to initiation of HD several years ago managed medically at that time -considering elective coronary angiography or repeating the MPI, can be done as outpatient
[2016-09-21 14:52] VITALS: BP 151/88; PULSE 68; TEMP 98.2
--- NOTE | 2016-09-21 15:22 | EKG ---
Test Reason : Blood Pressure : / mmHG Vent. Rate : 064 BPM Atrial Rate : 064 BPM P-R Int : 172 ms QRS Dur : 098 ms QT Int : 404 ms P-R-T Axes : 025 007 108 degrees QTc Int : 416 ms NORMAL SINUS RHYTHM T WAVE ABNORMALITY, CONSIDER ANTEROLATERAL ISCHEMIA ABNORMAL ECG WHEN COMPARED WITH ECG OF 18-NOV-2015 17:37, T WAVE INVERSION MORE EVIDENT IN ANTERIOR LEADS Confirmed by JOSIANE HODGES, CHRISTINE ([id number]) on 09/21/2016 3:22:27 PM Referred By: Confirmed By:CHRISTINE JOSHUA MD
--- NOTE | 2016-09-21 18:11 | PN ---
Teaching Attending Note Name of Resident: Olegario Fox ATTENDING PHYSICIAN STATEMENT I saw and evaluated the patient. I reviewed the resident's note and discussed the case with the resident. I agree with the resident's findings and plan as documented. SUBJECTIVE: OBJECTIVE: Vital Signs Period Temp Pulse Resp BP Sys/W[place]ley Pulse Ox Last 24 Hr 98 F-98.4 F 64-95 16-20 145-187/84-123 97-98 ASSESSMENT AND PLAN:
--- NOTE | 2016-09-21 19:26 | DS ---
Physical Exam: LABS Laboratory Results - last 24 hr Selected Entries 09/21/16 13:55 Temperature 98.2 F Pulse Rate 68 Respiratory 18 Rate Blood Pressure 151/88 Laboratory Tests 09/20/16 09/21/16 09/21/16 15:12 00:20 05:35 WBC 4.8 Hgb 9.7 L D Hct 28.5 L D Sodium Potassium BUN Creatinine Total Bilirubin AST Troponin I < 0.02 0.02 Total Protein Albumin 09/21/16 05:35 WBC Hgb Hct Sodium 142 Potassium 4.2 BUN 41 H Creatinine 9.8 H* Total Bilirubin 1.3 H AST 13 L D Troponin I Total Protein 6.1 L D Albumin 3.3 L D HOSPITAL COURSE: Date of Admission:09/20/16 Date of Discharge: 09/21/16 Pre Hospital Course- 50 year old M with pmh of HTN, HLD, CVA with residual deficits, Type B aortic dissection, and ESRD on HD (TTS) presented to the ED with 1 day history of chest pain that was intermittent, non-radiating, 8/10 in the left mid axillary line. Pain was worse on inspiration and did not change with position or movement. Pain was not reproducible by palpation. ED course- EKG, CXR unchanged from previous. Trops negative x 2. Patient was placed into obs Hospital Course- Patient underwent echo. Echo is still pending. Patient was seen by cardiology and felt stress test could be done as an outpatient. Post Hospital Course- Patient was discharged to follow up with cardiology within 1 week. Minutes to complete discharge: 30 Discharge Summary Reason For Visit: END STAGE RENAL DISEASE DUE TO BENIGN HYPERTENSION Current Active Problems Chest pain (Acute) CVA, old, cognitive deficits (Chronic) ESRD (end stage renal disease) on dialysis (Chronic) HLD (hyperlipidemia) (Chronic) Hypertension (Chronic) Condition: Improved - Instructions Diet, Activity, Other Instructions: You were in the hospital due to chest pain. Please follow up with your primary care provider within 1 week. Please follow up with your facilities operations technician (Dr. Loza) within 1 week. Continue to go to dialysis as scheduled. Continue the following medications: Amlodipine 5 mg by mouth daily Losartan 50 mg by mouth daily Aspirin 81 mg by mouth daily Labetalol 100 mg PO q8h Pravastatin 40 mg PO hs If you have chest pain, shortness of breath, or any new symptoms please come back to the hospital immediately. Referrals: Gorge Loza MD [Staff Physician] - Prudencio Severino MD [Primary Care Provider] - Kevin Brown MD [Staff Physician] - Disposition: HOME - Home Medications Comprehensive Discharge Medication List: Ambulatory Orders Losartan Potassium 50 mg PO DAILY 05/12/15 Aspirin [ASA -] 81 mg PO BID #30 tab.chew 11/23/15 Labetalol HCl [Normodyne -] 100 mg PO Q8H #90 tablet 11/23/15 Pravastatin Sodium 40 tab PO HS #60 tablet 11/23/15 Amlodipine Besylate 5 mg PO DAILY 07/22/16 Problem List - Problems (1) Chest pain (2) ESRD (end stage renal disease) on dialysis (3) Hypertension (5) HLD (hyperlipidemia) (6) DVT prophylaxis This patient is new to me today: No Emergency Visit: No Critical Care patient: No - Discharge Referral Referred to [facility] No
== END 2016-09-21 14:53 | disposition home or self-care (01) ==
LOC: JER 13:00 → JERBED 21:35 → J4W 09-21 00:56
PROVIDERS: ADMIT Internal Medicine; ATTEND Internal Medicine
PROC: 3E033NZ Introduction of Analgesics, Hypnotics, Sedatives into Peripheral Vein, Percutaneous Approach (ICD-10-PCS; principal; 2016-09-20)
PROC: 3E033GC Introduction of Other Therapeutic Substance into Peripheral Vein, Percutaneous Approach (ICD-10-PCS; 2016-09-20)
PROC: 3E013GC Introduction of Other Therapeutic Substance into Subcutaneous Tissue, Percutaneous Approach (ICD-10-PCS; 2016-09-20)
DX: I12.0 Hypertensive chronic kidney disease with stage 5 chronic kidney disease or end stage renal disease (principal); N18.6 End stage renal disease; Z99.2 Dependence on renal dialysis; I25.10 Atherosclerotic heart disease of native coronary artery without angina pectoris; I42.9 Cardiomyopathy, unspecified; I71.01 Dissection of thoracic aorta; E78.5 Hyperlipidemia, unspecified; I69.351 Hemiplegia and hemiparesis following cerebral infarction affecting right dominant side; Z79.82 Long term (current) use of aspirin; R07.82 Intercostal pain
CPT/HCPCS: 36415; 71010-TC; 80053; 82553; 84484; 85025; 93005; 93010; 93306-TC; 99285-25; G0378; J1644

== ENCOUNTER 2016-11-14 11:44 | Inpatient (IN) | payer OTHER ==
--- NOTE | 2016-11-14 11:58 | PDOC ---
History of Present Illness <Mike Mcwilliams - Last Filed: 11/14/16 13:01> - General History Source: Patient Exam Limitations: No Limitations - History of Present Illness Initial Comments: 11/14/16 13:04 Patient is a 51 year old male with a significant past medical history of CAD, HTN, Hyperlipidemia, Other (chronic type B aortic dissection and 4-4.2 cm descending thoracic aortic aneurysm), Renal Insuffi, Hemodialysis, Anemia, B12 Deficiency, Thrombocytopenia, who was brought by EMS to the ED with complaints of dialysis shunt compliccation that began 3 days ago. As per patient's mother , the patient is scheduled for dialysis tuesdays and saturdays. Patient was sent to dialysis monday and was not able to complete, so he was instructed to come in monday. Patient then went into dialysis this morning with similar results, and was sent to the ED. Denies chest pain, SOB. Denies any other symptoms. Allergies: None Social history: Lives with mother. Unemployed. No smoking. No alcohol. No alcohol. Surgical history: AV Fistula/Graft PMD: Dr. Shelley. Kevin Stephen (Nephrology). <Sriram Ryan - Last Filed: 11/14/16 15:43> - General Chief Complaint: Dialysis Shunt Problem Stated Complaint: CLOTTED SITE Past History - Past Medical History Anemia: No Asthma: No Cancer: No Cardiac Disorders: No CVA: Yes (MULTIPLE RESIDUAL R SIDED WEAKNESS AND EXPRESSIVE APHASIA) COPD: No CHF: No Dementia: No Diabetes: No Dialysis: Yes () GI Disorders: No Disorders: No HTN: Yes Hypercholesterolemia: Yes Liver Disease: No Seizures: No Thyroid Disease: No - Surgical History Abdominal Surgery: No Appendectomy: No Cardiac Surgery: No Cholecystectomy: No Lung Surgery: No Neurologic Surgery: No Orthopedic Surgery: No - Family Disease History Family Disease History: Heart Disease: Mother - Immunization History Immunization Up to Date: Yes - Suicide/Smoking/Psychosocial Hx Smoking Status: No Smoking History: Never smoked Have you smoked in the past 12 months: No Number of Cigarettes Smoked Daily: 0 Hx Alcohol Use: No Drug/Substance Use Hx: No Substance Use Type: None Hx Substance Use Treatment: No <iMke Mcwilliams - Last Filed: 11/14/16 13:01> <Sriram Ryan - Last Filed: 11/14/16 15:43> - Past Medical History Allergies/Adverse Reactions: Allergies Allergy/AdvReac Type Severity Reaction Status Date / Time No Known Drug Allergies Allergy Verified 11/14/16 12:31 Home Medications: Ambulatory Orders Labetalol HCl [Normodyne -] 100 mg PO Q8H #90 tablet 11/23/15 Pravastatin Sodium 40 tab PO HS #60 tablet 11/23/15 Amlodipine Besylate 5 mg PO DAILY 07/22/16 Aspirin [ASA -] 81 mg PO DAILY 11/14/16 Warfarin Sodium [Coumadin] 4 mg PO HS 11/14/16 Review of Systems - Review of Systems Able to Perform ROS?: Yes Comments:: 11/14/16 13:05 GENERAL/CONSTITUTIONAL: No fever or chills. No weakness. HEAD, EYES, EARS, NOSE AND THROAT: No change in vision. No ear pain or discharge. No sore throat. CARDIOVASCULAR: No chest pain or shortness of breath. RESPIRATORY: No cough, wheezing, or hemoptysis. GASTROINTESTINAL: No nausea, vomiting, diarrhea or constipation. GENITOURINARY: No dysuria, frequency, or change in urination. MUSCULOSKELETAL: No joint or muscle swelling or pain. No neck or back pain. SKIN: No rash NEUROLOGIC: No headache, vertigo, loss of consciousness, or change in strength/ sensation. ENDOCRINE: No increased thirst. No abnormal weight change. HEMATOLOGIC/LYMPHATIC: No anemia, easy bleeding, or history of blood clots. ALLERGIC/IMMUNOLOGIC: No hives or skin allergy. All Other Systems: Reviewed and Negative <Sriram Ryan - Last Filed: 11/14/16 15:43> *Physical Exam - Vital Signs Last Vital Signs Temp Pulse Resp BP Pulse Ox 98.4 F 64 18 128/91 100 11/14/16 12:25 11/14/16 12:25 11/14/16 12:25 11/14/16 12:25 11/14/16 12:25 - Physical Exam Comments: 11/14/16 13:05 GENERAL: Awake, alert, and fully oriented, in no acute distress HEAD: No signs of trauma EYES: PERRLA, EOMI, sclera anicteric, conjunctiva clear ENT: Auricles normal inspection, hearing grossly normal, nares patent, oropharynx clear without exudates. Moist mucosa NECK: Normal ROM, supple, no lymphadenopathy, JVD, or masses LUNGS: Breath sounds equal, clear to auscultation bilaterally. No wheezes, and no crackles HEART: Regular rate and rhythm, normal S1 and S2, no murmurs, rubs or gallops ABDOMEN: Soft, nontender, normoactive bowel sounds. No guarding, no rebound. No masses EXTREMITIES: +No Left arm Thrill. Normal range of motion, no edema. No clubbing or cyanosis. No cords, erythema, or tenderness NEUROLOGICAL: Cranial nerves II through XII grossly intact. Normal speech, normal gait SKIN: Warm, Dry, normal turgor, no rashes or lesions noted. <Sriram Ryan - Last Filed: 11/14/16 15:43> Heart Score/ECG Review - ECG Intrepretation Comment:: 11/14/16 15:[address] Mcwilliams Impression:Sinus Bradycardia Minimal voltage criteria for LVH, may be normal variant T wave abnormality, consider anterolateral ischemia Abnormal ECG. Vent rate bpm : 56 bpm <Sriram Ryan - Last Filed: 11/14/16 15:43> ED Treatment Course - LABORATORY CBC & Chemistry Diagram: 11/14/16 13:00 11/14/16 13:00 <Sriram Ryan - Last Filed: 11/14/16 15:43> Medical Decision Making - Medical Decision Making 11/14/16 12:[address] Shelley @12:07pm. Awaiting call back Called back 12:25pm. Case discussed. Called Dr. Surendra Sultana @12:36pm. Awaiting Call back. Called back @12:45pm. Case Discussed. Called Kevin Stephen. @12:48pm. Case discussed. Called Dr. Prudencio Severino. Dr. Adams behavioral health consultant. Cases Discussed. <Sriram Ryan - Last Filed: 11/14/16 15:43> *DC/Admit/Observation/Transfer - Discharge Dispostion Admit: Yes - Attestations Physician Attestion: 11/14/16 11:58 I, Dr. Mike Mcwilliams, attest that this document has been prepared under my direction and personally reviewed by me in its entirety. I further attest, that it accurately reflects all work, treatment, procedures and medical decision -making performed by me. <Mike Mcwilliams - Last Filed: 11/14/16 13:01> - Attestations Scribe Attestion: 11/14/16 13:05 Documentation prepared by Sriram Ryan, acting as certified medical asst for Mike Mcwilliams MD/DO. <Sriram Ryan - Last Filed: 11/14/16 15:43> Diagnosis at time of Disposition: ESRD needing dialysis Clotted dialysis shunt Qualifiers: Encounter type: initial encounter Qualified Code(s): T82.868A - Thrombosis due to vascular prosthetic devices, implants and grafts, initial encounter - Discharge Dispostion Condition at time of disposition: Unchanged/Unknown
[2016-11-14 13:16] LABS: BASOPHIL 0.6 % (0-2.0); EOSINOPHIL 2.3 % (0-4.5); MCH 33.1 pg (25.7-33.7); MCHC 33.7 g/dl (32.0-35.9); MEAN CELL VOLUME 98.4 fl (80-96); MEAN PLT VOLUME 7.8 fl (7.5-11.1); NEUTROPHILS 65.3 % (42.8-82.8); PLATELET COUNT 119 K/MM3 (134-434); WHITE BLOOD COUNT 4.7 K/mm3 (4.0-10.0)
[2016-11-14 13:46] LABS: ALBUMIN 3.7 g/dl (3.4-5.0); ALK PHOS 90 U/L (45-117); ANION GAP 11 (8-16); BILIRUBIN,TOTAL 0.8 mg/dL (0.2-1.0); CO2 26 mmol/L (21-32); GLUCOSE,RANDOM 80 mg/dL (74-106); SGPT/ALT 13 U/L (12-78); TOT PROT 6.9 g/dl (6.4-8.2)
[2016-11-14 13:53] LABS: SGOT/AST 14 U/L (15-37)
[2016-11-14 14:15] LABS: CREATININE 9.4 mg/dL (0.7-1.3)
[2016-11-14 16:05] VITALS: BMI 23.6
--- NOTE | 2016-11-14 17:11 | CONSULT ---
Consult - text type - Consultation Consultation Note: Renal Consult for ESRD on HD This is a 51 year old gentleman with PMhx of ESRD no HD (TTS), Hypertension, CVA who presented with clotted AVF. Pt went to dialysis on Monday and was unable to have dialysis b/c his AVF was not functioning. He has no acute complaints. Denies any sob, chest pain, abd pain, N/V/D. To go to OR later today PMhx: As abvoe Allergies: NKDA FAmily Hx: NC Social Hx: No T/A/D Home Medications Medication Instructions Recorded Labetalol HCl [Normodyne -] 100 mg PO Q8H #90 tablet 11/23/15 Pravastatin Sodium 40 tab PO HS #60 tablet 11/23/15 Amlodipine Besylate 5 mg PO DAILY 07/22/16 Aspirin [ASA -] 81 mg PO DAILY 11/14/16 Warfarin Sodium [Coumadin] 4 mg PO HS 11/14/16 Vital Signs Temperature 98.4 F 11/14/16 12:25 Pulse Rate 59 L 11/14/16 15:47 Respiratory Rate 18 11/14/16 15:47 Blood Pressure 126/74 11/14/16 15:47 O2 Sat by Pulse Oximetry (%) 100 11/14/16 15:47 Intake & Output 11/11/16 11/12/16 11/13/16 11/14/16 23:59 23:59 23:59 23:59 Weight 160 lb 0.008 oz CBC, BMP 11/14/16 13:00 11/14/16 13:00 A/P 51 year old gentleman with PMhx of ESRD no HD (TTS), Hypertension, CVA who presented with clotted AVF. #ESRD on HD #Clotted AVF Pt is comfortable and without hyperkalemia, volume overload or overt uremia that would warrant urgent HD TO go to OR wit Dr. Shelley for declott today if stable after procedure can be discharged and follow up at outpatient HD tomorrow or have dialysis as a inpatient tomorrow Thank you Will follow Kevin Brown DO
[2016-11-14] MEDS ORDERED: ceFAZolin SODIUM 1 GM VIAL IVPB ONE (18:55)
[2016-11-14] MEDS ORDERED: MIDAZOLAM HCL 2 MG/2 ML SINGLE DOSE VIAL ONE (18:56)
[2016-11-14] MEDS ORDERED: ceFAZolin SODIUM 1 GM VIAL ONE (18:58)
[2016-11-14] MEDS ORDERED: hydrALAZINE HCL 20 MG/ML VIAL ONE (19:07)
[2016-11-14] MEDS ORDERED: LIDOCAINE HCL 1%, 10 MG/ML (20ML VIAL) INF ONE (19:35)
--- NOTE | 2016-11-14 20:01 | OP ---
Operative Note - Note: Operative Date: 11/14/16 Pre-Operative Diagnosis: clotted left avf Operation: venogram, suction thrombectomy, venoplasty left avf Post-Operative Diagnosis: Same as Pre-op Surgeon: Felipe Shelley Anesthesia: Fractional Estimated Blood Loss (mls): 75 Operative Report Dictated: Yes
[2016-11-14] MEDS ORDERED: amLODIPine BESYLATE 5 MG TABLET (FP) PO SCH (20:15)
[2016-11-14] MEDS ORDERED: LABETALOL HCL 100 MG TABLET (FP) PO SCH (22:00)
--- NOTE | 2016-11-15 00:20 | HP ---
Admitting History and Physical - Admission History of Present Illness: Pt is a 51 y/o male w/ PMH significant for HTN, HLD, CAD, CVA, chronic type B aortic dissection, anemia, thrombocytopenia and ESRD on HD TIW. Pt was at dialysis on Sat but unable to do dialysis bc of clotted AV graft. Pt now came to the ER bc of clotted AV graft. 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 Cardiovascular: Yes: CAD, HTN, Hyperlipdemia, Other (chronic type B aortic dissection and 4-4.2 cm descending thoracic aortic aneurysm) Renal/: Yes: Renal Inusuff, Hemodialysis Heme/Onc: Yes: Anemia, B12 Deficiency, Thrombocytopenia - Past Surgical History Past Surgical History: Yes: None, AV Fistula/Graft - Smoking History Smoking history: Never smoked Have you smoked in the past 12 months: No Aproximately how many cigarettes per day: 0 - Alcohol/Substance Use Hx Alcohol Use: No History of Substance Use: reports: Cocaine - Social History ADL: Family Assistance History of Recent Travel: No Home Medications - Allergies Allergies/Adverse Reactions: Allergies Allergy/AdvReac Type Severity Reaction Status Date / Time No Known Drug Allergies Allergy Verified 11/14/16 12:31 - Home Medications Home Medications: Ambulatory Orders Labetalol HCl [Normodyne -] 100 mg PO Q8H #90 tablet 11/23/15 Pravastatin Sodium 40 tab PO HS #60 tablet 11/23/15 Amlodipine Besylate 5 mg PO DAILY 07/22/16 Aspirin [ASA -] 81 mg PO DAILY 11/14/16 Warfarin Sodium [Coumadin] 4 mg PO HS 11/14/16 Family Disease History - Family Disease History Family History: Unremarkable Family Disease History: Diabetes: Mother (CABG in 50s), Heart Disease: Mother Review of Systems - Review of Systems Constitutional: reports: No Symptoms Eyes: reports: No Symptoms HENT: reports: No Symptoms Neck: reports: No Symptoms Cardiovascular: reports: No Symptoms Respiratory: reports: No Symptoms Gastrointestinal: reports: No Symptoms Physical Examination Vital Signs: Vital Signs Temperature 98.1 F 11/14/16 21:00 Pulse Rate 84 11/14/16 21:00 Respiratory Rate 16 11/14/16 21:00 Blood Pressure 111/72 11/14/16 21:00 O2 Sat by Pulse Oximetry (%) 100 11/14/16 21:00 Constitutional: Yes: No Distress HENT: Yes: WNL Neck: Yes: WNL, Supple Cardiovascular: Yes: WNL, Regular Rate and Rhythm Respiratory: Yes: WNL, Regular, CTA Bilaterally Gastrointestinal: Yes: WNL, Normal Bowel Sounds, Soft Musculoskeletal: Yes: WNL Extremities: Yes: Other ((+) AVF LUE) Labs: CBC, BMP 11/14/16 13:00 11/14/16 13:00 Problem List - Problems (1) Dialysis AV fistula malfunction Assessment/Plan: Pt seen by vascular S/P suction thrombectomy/venoplasty Lt AVF DC planning after dialysis Code(s): T82.590A - [facility] COMPL OF SURGICALLY CREATED ARTERIOVENOUS FISTULA, INIT Qualifiers: Encounter type: subsequent encounter Qualified Code(s): T82.590D - Other mechanical complication of surgically created arteriovenous fistula, subsequent encounter (2) ESRD (end stage renal disease) on dialysis Assessment/Plan: As per renal Pt to have dialysis in am Code(s): N18.6 - END STAGE RENAL DISEASE Z99.2 - DEPENDENCE ON RENAL DIALYSIS (3) Hypertension Assessment/Plan: BP stable Cont antihypertensives Code(s): I10 - ESSENTIAL (PRIMARY) HYPERTENSION Qualifiers: Hypertension type: renovascular hypertension Qualified Code(s): I15.0 - Renovascular hypertension (4) CVA, old, cognitive deficits Code(s): I69.31 - COGNITIVE DEFICITS FOLLOWING CEREBRAL INFARCT * DO NOT USE * (5) HLD (hyperlipidemia) Code(s): E78.5 - HYPERLIPIDEMIA, UNSPECIFIED (6) Anemia of chronic renal failure Code(s): N18.9 - CHRONIC KIDNEY DISEASE, UNSPECIFIED D63.1 - ANEMIA IN CHRONIC KIDNEY DISEASE Qualifiers: Chronic kidney disease stage: stage 5 Qualified Code(s): N18.5 - Chronic kidney disease, stage 5; D63.1 - Anemia in chronic kidney disease (8) Coronary artery disease Code(s): I25.10 - ATHSCL HEART DISEASE OF [place] CORONARY ARTERY W/O ANG PCTRS (9) Thrombocytopenia Code(s): D69.6 - THROMBOCYTOPENIA, UNSPECIFIED
[2016-11-15 08:07] LABS: BASOPHIL 0.4 % (0-2.0); EOSINOPHIL 1.8 % (0-4.5); MCH 33.3 pg (25.7-33.7); MCHC 33.9 g/dl (32.0-35.9); MEAN CELL VOLUME 98.4 fl (80-96); MEAN PLT VOLUME 7.9 fl (7.5-11.1); NEUTROPHILS 70.4 % (42.8-82.8); PLATELET COUNT 123 K/MM3 (134-434); RDW 17.4 % (11.9-15.9); WHITE BLOOD COUNT 4.8 K/mm3 (4.0-10.0)
[2016-11-15 08:17] LABS: ALBUMIN 3.4 g/dl (3.4-5.0); ANION GAP 13 (8-16); CALCIUM 8.3 mg/dL (8.5-10.1); CO2 25 mmol/L (21-32); GLUCOSE,RANDOM 89 mg/dL (74-106)
[2016-11-15 08:25] LABS: INR 1.06 (0.82-1.09); PROTHROMBIN TIME (PATIENT) 11.7 SEC (9.98-11.88)
[2016-11-15 08:59] LABS: BILIRUBIN,TOTAL 1.3 mg/dL (0.2-1.0); SGOT/AST 8 U/L (15-37); TOT PROT 6.4 g/dl (6.4-8.2)
[2016-11-15 09:00] LABS: ALK PHOS 81 U/L (45-117); SGPT/ALT 10 U/L (12-78)
[2016-11-15 09:04] LABS: CREATININE 10.4 mg/dL (0.7-1.3)
[2016-11-15] MEDS: ASPIRIN 81 MG CHEWABLE TABLETS PO SCH (10:00)
[2016-11-15] MEDS: amLODIPine BESYLATE 5 MG TABLET (FP) PO SCH (10:00)
--- NOTE | 2016-11-15 10:07 | PN ---
Progress Note (short form) - Note Progress Note: POD #1 Alert. resting in position of comfort. Currently on HD via LUE AVF --> good arterial and venous flow/pressures. Patient's INR this morning is 1.06 (sub-therapeutic). Denies n/v/f/c, CP or SOB. Afeb. AVSS Gen: alert. nad LUE: patent avf Problem List - Problems (1) Clotted dialysis shunt Assessment/Plan: POD #1 s/p venogram, suction thrombectomy, venoplasty left avf HD per pt's schedule Coumadin 4mg INR Cont care prmary team No further surgical intervention On behalf of Dr. Shelley, thank you for the opportunity to participate in your patient's care Code(s): T82.868A - THROMBOSIS DUE TO VASCULAR PROSTH DEV/GRFT, INIT Qualifiers: Encounter type: initial encounter Qualified Code(s): T82.868A - Thrombosis due to vascular prosthetic devices, implants and grafts, initial encounter
--- NOTE | 2016-11-15 11:49 | PN ---
Progress Note (short form) - Note Progress Note: Renal Follow up for ESRD on HD Pt seen and examined during dialysis AVF with good flow, pressures are WNL Goal UF is 3L BP is stable pt without complaints Vital Signs Temperature 98.4 F 11/15/16 09:40 Pulse Rate 95 H 11/15/16 11:15 Respiratory Rate 18 11/15/16 11:15 Blood Pressure 130/77 11/15/16 11:15 O2 Sat by Pulse Oximetry (%) 99 11/14/16 23:40 Intake & Output 11/12/16 11/13/16 11/14/16 11/15/16 23:59 23:59 23:59 23:59 Intake Total 200 240 Balance 200 240 Weight 160 lb 0.008 oz Gen: NAD CVS: RRR Lungs:CTA Abd: soft NT/ND Ext: No edema CBC, BMP 11/15/16 07:00 11/15/16 07:00 Current Medications Amlodipine Besylate (Norvasc -) 5 mg PO DAILY DAVID Aspirin (Asa -) 81 mg PO DAILY DAVID Atorvastatin Calcium (Lipitor -) 10 mg PO HS DAVID Fentanyl (Sublimaze Injection -) 25 mcg IVPUSH [id number] PRN PRN Reason: PAIN Stop: 11/17/16 20:05 Labetalol HCl (Normodyne -) 100 mg PO TID DAVID Warfarin Sodium (Coumadin -) 4 mg PO DAILY@1800 DAVID A/P A/P 51 year old gentleman with PMhx of ESRD no HD (TTS), Hypertension, CVA who presented with clotted AVF. 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
--- NOTE | 2016-11-15 13:41 | EKG ---
Test Reason : Blood Pressure : / mmHG Vent. Rate : 056 BPM Atrial Rate : 056 BPM P-R Int : 160 ms QRS Dur : 098 ms QT Int : 434 ms P-R-T Axes : 007 -05 118 degrees QTc Int : 418 ms SINUS BRADYCARDIA MINIMAL VOLTAGE CRITERIA FOR LVH, MAY BE NORMAL VARIANT T WAVE ABNORMALITY, CONSIDER ANTEROLATERAL ISCHEMIA ABNORMAL ECG WHEN COMPARED WITH ECG OF 14-NOV-2016 12:09, PERSISTANT EARLY TRANSITION IN V2 T WAVES ARE INVERTED IN V3 REPEAT EKG IF CLINICALLY INDICATED Confirmed by MOI GREEN MD ([id number]) on 11/15/2016 1:41:19 PM Referred By: Confirmed By:MOI GREEN MD
[2016-11-15 14:02] LABS: CREATININE 3.3 mg/dL (0.7-1.3)
--- NOTE | 2016-11-15 14:16 | EKG ---
Test Reason : Blood Pressure : / mmHG Vent. Rate : 061 BPM Atrial Rate : 061 BPM P-R Int : 158 ms QRS Dur : 096 ms QT Int : 408 ms P-R-T Axes : 017 000 109 degrees QTc Int : 410 ms NORMAL SINUS RHYTHM MINIMAL VOLTAGE CRITERIA FOR LVH, MAY BE NORMAL VARIANT T WAVE ABNORMALITY, CONSIDER ANTEROLATERAL ISCHEMIA ABNORMAL ECG WHEN COMPARED WITH ECG OF 20-SEP-2016 13:42, NO SIGNIFICANT CHANGE WAS FOUND REPEAT EKG IF CLINICALLY INDICATED Confirmed by MOI GREEN MD ([id number]) on 11/15/2016 2:16:38 PM Referred By: Confirmed By:MOI GREEN MD
[2016-11-15] MEDS: LABETALOL HCL 100 MG TABLET (FP) PO SCH ×2 (14:45→22:26)
--- NOTE | 2016-11-15 16:01 | OP ---
DATE OF OPERATION: 11/14/2016 PREOPERATIVE DIAGNOSIS: Clotted left arteriovenous fistula. POSTOPERATIVE DIAGNOSIS: Clotted left arteriovenous fistula. PROCEDURE: Venogram, suction thrombectomy, venoplasty left arteriovenous fistula. SURGEON: Felipe Horton DO ANESTHESIA: Fractional. BLOOD LOSS: 75 mL INDICATION FOR PROCEDURE: The patient is a 51-year-old male who comes in from the dialysis unit with a clotted left AV fistula. It was decided that he would need a venogram and suction thrombectomy. Patient was consented for the procedure, understanding all risks, benefits, and alternatives and taken to the operating room. DESCRIPTION OF PROCEDURE: Once in the operating room, was laid on the operative table in supine manner, and the area of the left arm was prepped and draped in a sterile surgical manner. Using ultrasound guidance, we were able to visualize the left basilic vein at the antecubital fossa, and 2 mL of lidocaine 1% were injected there. We then took our micropuncture needle and punctured the basilic vein. Micropuncture wire was inserted short 6-Pashto sheath was inserted. We then shot our venogram by hand injection, showing that the fistula was clotted. We then placed a 0.035 floppy guidewire down to the anastomosis and across the anastomosis into the radial artery retrograde. We then went ahead and used a 5-Pashto suction thrombectomy AVX catheter, and we were able to perform suction thrombectomy of the entire AV fistula. We then went ahead and used an 8 x 8 and a 9 x 8 balloon and performed venoplasty of the entire AV fistula. Thereafter, there was a good thrill in our AV fistula. Completion venogram showed that there was good flow, and the fistula was patent. At this point, we used a 4-0 Biosyn stitch, and a figure-of-8 stitch was placed around our sheath. Sheath was pulled. Area was wet and dried, and Dermabond was placed. Patient tolerated the procedure with no complication. Patient was transferred to PACU in stable condition. FELIPE HORTON DO STOCK SUPERVISOR/[id number]
[2016-11-15] MEDS ORDERED: WARFARIN NA 2 MG TABLET (UD) PO SCH ×2 (18:00)
[2016-11-15 18:16] LABS: INR 1.06 (0.82-1.09); PROTHROMBIN TIME (PATIENT) 11.7 SEC (9.98-11.88)
--- NOTE | 2016-11-15 18:17 | PN ---
Progress Note (short form) - Note Progress Note: ANESTHESIA POSTOP: 51 yo male, POD #1, Doing well s/p MAC for thrombectomy/venoplasty. Tolerating PO, no pain issues. Encouraged ambulation.
[2016-11-15] MEDS ORDERED: ATORVASTATIN CA 10 MG TABLET (FP) PO SCH (22:00)
[2016-11-16 06:11] LABS: HEP B SURFACE AB Reactive (.)
[2016-11-16] MEDS: LABETALOL HCL 100 MG TABLET (FP) PO SCH (06:37)
[2016-11-16 10:44] VITALS: PULSE 78
[2016-11-16] MEDS ORDERED: PT OWN MED DRAWER 7, Y5N ONE (11:56)
[2016-11-16] MEDS: amLODIPine BESYLATE 5 MG TABLET (FP) PO SCH (12:03)
[2016-11-16] MEDS: ASPIRIN 81 MG CHEWABLE TABLETS PO SCH (12:04)
--- NOTE | 2016-11-16 12:04 | PN ---
Progress Note (short form) - Note Progress Note: Renal Follow up for ESRD on HD Pt seen and examined at the bedside awake and alert s/p dialysis yesterday no acute complaints for d/c home today Vital Signs Temperature 98.6 F 11/16/16 06:00 Pulse Rate 78 11/16/16 10:44 Respiratory Rate 18 11/16/16 06:00 Blood Pressure 111/74 11/16/16 06:00 O2 Sat by Pulse Oximetry (%) 94 L 11/16/16 10:44 Intake & Output 11/13/16 11/14/16 11/15/16 11/16/16 23:59 23:59 23:59 23:59 Intake Total 200 1445 100 Balance 200 1445 100 Weight 160 lb 0.008 oz Gen: NAD CVS: RRR Lungs:CTA Abd: soft NT/ND Ext: No edema CBC, BMP 11/15/16 07:00 11/15/16 13:15 Current Medications Amlodipine Besylate (Norvasc -) 5 mg PO DAILY [facility] Last Admin: 11/15/16 10:00 Dose: Not Given Aspirin (Asa -) 81 mg PO DAILY [facility] Last Admin: 11/15/16 10:00 Dose: Not Given Atorvastatin Calcium (Lipitor -) 10 mg PO HS [facility] Last Admin: 11/15/16 22:26 Dose: 10 mg Fentanyl (Sublimaze Injection -) 25 mcg IVPUSH [id number] PRN PRN Reason: PAIN Stop: 11/17/16 20:05 Labetalol HCl (Normodyne -) 100 mg PO TID [facility] Last Admin: 11/16/16 06:37 Dose: 100 mg A/P A/P 51 year old gentleman with PMhx of ESRD no HD (TTS), Hypertension, CVA who presented with clotted AVF. 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
[2016-11-16 13:32] VITALS: BP 118/54; TEMP 98.4
== END 2016-11-16 12:38 | disposition home or self-care (01) | DRG 252 ==
LOC: JER 11:44 → JERBED 12:37 → J5S 16:22 → OBSVTOIN 11-16 10:24
PROVIDERS: ADMIT Internal Medicine; ATTEND Internal Medicine
PROC: 057C3ZZ Dilation of Left Basilic Vein, Percutaneous Approach (ICD-10-PCS; 2016-11-14)
PROC: B50NYZZ Plain Radiography of Left Upper Extremity Veins using Other Contrast (ICD-10-PCS; 2016-11-14)
PROC: 05CC3ZZ Extirpation of Matter from Left Basilic Vein, Percutaneous Approach (ICD-10-PCS; principal; 2016-11-14 19:08)
PROC: 5A1D00Z (ICD-10-PCS; 2016-11-15)
DX: T82.868A Thrombosis due to vascular prosthetic devices, implants and grafts, initial encounter (principal); N18.6 End stage renal disease; I12.0 Hypertensive chronic kidney disease with stage 5 chronic kidney disease or end stage renal disease; G81.91 Hemiplegia, unspecified affecting right dominant side; Y83.8 Other surgical procedures as the cause of abnormal reaction of the patient, or of later complication, without mention of misadventure at the time of the procedure; Y92.89 Other specified places as the place of occurrence of the external cause; Z99.2 Dependence on renal dialysis; D63.1 Anemia in chronic kidney disease; I25.10 Atherosclerotic heart disease of native coronary artery without angina pectoris; D69.6 Thrombocytopenia, unspecified; E78.5 Hyperlipidemia, unspecified; E53.8 Deficiency of other specified B group vitamins; I71.2 Thoracic aortic aneurysm, without rupture
CPT/HCPCS: 36415; 76000-TC; 80053; 82565; 84520; 85025; 85610; 86704; 86706; 86708; 86803; 87340; 93005; 93010; 93971; 94760; 99283-25; G0378; J1644